=== PATIENT | male | born 1950 | race Caucasian/White ===

== ENCOUNTER 2020-03-16 15:59 | Emergency (ER) | payer OTHER, MEDICARE, BC ==
[2020-03-16 16:12] VITALS: BP 108/60; PULSE 91
[2020-03-16] MEDS ORDERED: Sodium Chloride 0.9% 10 ML Syringe FLUSH PRN (16:19)
[2020-03-16] MEDS ORDERED: Sodium Chloride 0.9% 1,000 ML IV ONE (16:24)
[2020-03-16] MEDS ORDERED: Iopamidol 612 MG/ML 100 ML Bottle IVPUSH ONE (16:26)
--- NOTE | 2020-03-16 16:35 | EDM.PDOC ---
ED HPI GENERAL MEDICAL PROBLEM - General Chief Complaint: Neurological Problem Stated Complaint: CONFUSION LACK OF MEMORY Time Seen by Provider: 03/16/20 16:15 Source of Information: Reports: Patient, Family History Limitations: Reports: No Limitations - History of Present Illness INITIAL COMMENTS - FREE TEXT/NARRATIVE: Pt. presents to ER from clinic with chief complaint of confusion and poor memory for about 1 week. He was sent to ER from clinic by Dr. Jackson for workup for this. Pt. and family state that pt. has developed a rather acute decline in his cognitive status over the past week or so. Pt. states that the symptoms started around the time that he underwent cataract surgery. He has noticed increased confusion, especially regarding his medications, sleep schedule that is off, and occasional difficulty finding words when speaking. Family is also concerned as his intake of fluids and and food as well. Son states that he is eating about 60% of what he normally does. He has not had any garbled speech. No problems with fever or chills. Denies any headache or head trauma. No numbness/tingling in extremities. No problems with ambulation. No facial droop. Denies any vision loss or change. Pt. denies any recent illness. No nausea, vomiting, or diarrhea. No fever or chills. Pt. does complain of some urinary frequency, but denies dysuria, urgency, or hematuria. Onset Date: 03/10/20 Location: Reports: Generalized Associated Symptoms: Reports: Confusion. Denies: Chest Pain, Cough, cough w sputum, Diaphoresis, Fever/Chills, Headaches, Loss of Appetite, Malaise, Nausea/Vomiting, Rash, Seizure, Shortness of Breath, Weakness - Related Data Allergies Allergy/AdvReac Type Severity Reaction Status Date / Time No Known Drug Allergies Allergy Cannot Verified 03/16/20 16:14 Remember seasonal Allergy Other Uncoded 03/16/20 16:14 Home Meds: Home Meds Aspirin [Low Dose Aspirin EC] 2 tab PO BEDTIME 11/24/13 [History] Calcium Carbonate/Vitamin D3 [Calcium 600 + Vit D Tablet] 0.5 tab PO BID 11/24/13 [History] Loratadine/Pseudoephedrine [Claritin-D 24 Hour Tablet] 1 each PO DAILY PRN 11/24/13 [History] Metoprolol Succinate [Toprol XL] 25 mg PO DAILY 11/24/13 [History] Multivitamin [Multi Vitamin Daily] 1 each PO DAILY 11/24/13 [History] Simvastatin [Zocor] 80 mg PO BEDTIME 11/24/13 [History] glipiZIDE [Glipizide Xl] 5 mg PO DAILY 11/24/13 [History] metFORMIN [Glucophage] 1,000 mg PO BIDM 11/24/13 [History] Ibuprofen [Advil] 200 mg PO Q4HR PRN 12/20/15 [History] Ubidecarenone [Coenzyme Q-10] 30 mg PO DAILY 12/20/15 [History] Docusate Sodium [Colace] 100 mg PO DAILY 12/21/15 [History] Past Medical History HEENT History: Reports: Cataract Cardiovascular History: Reports: CAD, High Cholesterol, Stents Respiratory History: Reports: Other (See Below) Other Respiratory History: lung nodule Gastrointestinal History: Reports: Other (See Below) Other Gastrointestinal History: heme pos. stool Genitourinary History: Reports: Other (See Below) Musculoskeletal History: Reports: Other (See Below) Other Musculoskeletal History: fatigue, foot pain Neurological History: Reports: Migraines Psychiatric History: Reports: None Endocrine/Metabolic History: Reports: Diabetes, Type II Other Hematologic History: vitamin d def Immunologic History: Reports: None Oncologic (Cancer) History: Reports: Prostate Dermatologic History: Reports: None - Past Surgical History Head Surgeries/Procedures: Reports: None HEENT Surgical History: Reports: Cataract Surgery, Other (See Below) Other HEENT Surgeries/Procedures: roof of mouth surgery. cataract surgery 03/02/20 and 03/10/20 Cardiovascular Surgical History: Reports: AAA Repair, Coronary Artery Bypass GI Surgical History: Reports: Colonoscopy Male Surgical History: Reports: Prostatectomy Endocrine Surgical History: Reports: None Musculoskeletal Surgical History: Reports: None Social & Family History - Tobacco Use Tobacco Use Status *Q: Unknown Ever Used Tobacco ED ROS GENERAL - Review of Systems Review Of Systems: See Below Constitutional: Reports: No Symptoms, Decreased Appetite. Denies: Fever, Chills, Malaise, Weakness, Fatigue, Night Sweats, Diaphoresis HEENT: Reports: Glasses. Denies: Ear Discharge, Ear Pain, Eye Pain Respiratory: Reports: No Symptoms Cardiovascular: Reports: No Symptoms Endocrine: Reports: No Symptoms GI/Abdominal: Reports: No Symptoms : Reports: No Symptoms Musculoskeletal: Reports: No Symptoms Skin: Reports: No Symptoms Neurological: Reports: Confusion. Denies: Dizziness, Headache, Numbness, Paresthesia, Pre-Existing Deficit, Seizure, Syncope, Tingling, Tremors, Trouble Speaking, Difficulty Walking, Weakness, Change in Speech, Gait Disturbance Psychiatric: Reports: No Symptoms Hematologic/Lymphatic: Reports: No Symptoms Immunologic: Reports: No Symptoms ED EXAM, GENERAL - Physical Exam Exam: See Below Exam Limited By: No Limitations General Appearance: Alert, WD/WN, No Apparent Distress Eye Exam: Bilateral Eye: EOMI, PERRL Nose: Normal Inspection, Normal Mucosa, No Blood Throat/Mouth: Normal Inspection, Normal Lips, Normal Teeth, Normal Gums, Normal Oropharynx, Normal Voice, No Airway Compromise Head: Atraumatic, Normocephalic Neck: Normal Inspection, Supple, Non-Tender, Full Range of Motion Respiratory/Chest: No Respiratory Distress, Lungs Clear, Normal Breath Sounds, No Accessory Muscle Use Cardiovascular: Normal Peripheral Pulses, Regular Rate, Rhythm, No Edema, No JVD Peripheral Pulses: 4+: Radial (L) GI/Abdominal: Soft, Non-Tender, No Distention, No Mass (Male) Exam: Deferred Rectal (Males) Exam: Deferred Back Exam: Normal Inspection, Full Range of Motion Extremities: Normal Inspection, Normal Range of Motion, Non-Tender, No Pedal Edema, Normal Capillary Refill Neurological: Alert, Oriented, CN II-XII Intact, Normal Cognition, Normal Gait, Normal Reflexes, No Motor/Sensory Deficits Psychiatric: Normal Affect, Normal Mood Skin Exam: Warm, Dry, Intact, Normal Color, No Rash Lymphatic: No Adenopathy Course - Vital Signs Last Recorded V/S: Last Vital Signs Temp 36.3 C 03/16/20 16:05 Pulse 91 03/16/20 16:05 Resp 16 03/16/20 16:05 BP 108/60 03/16/20 16:05 Pulse Ox 94 L 03/16/20 16:05 - Orders/Labs/Meds Labs: Laboratory Tests 03/16/20 03/16/20 03/16/20 Range/Units 16:27 16:27 16:27 WBC 9.2 (4.0-10.0) x10^3/uL RBC 4.16 L (4.5-6.0) x10^6/uL Hgb 11.9 L (14.0-18.0) g/dL Hct 34.5 L (40.0-52.0) % MCV 82.9 D (78.0-93.0) fL MCH 28.6 (26.0-32.0) pg MCHC 34.5 (32.0-36.0) g/dL RDW Coeff of Maria A 11.7 (10.0-15.0) % Plt Count 209 (130-400) x10^3/uL Neut % (Auto) 81.2 H (50.0-80.0) % Lymph % (Auto) 7.5 L (25.0-50.0) % Bledso[place] % (Auto) 9.3 (2.0-11.0) % Eos % (Auto) 1.2 (0.0-4.0) % Baso % (Auto) 0.8 (0.2-1.2) % PT 11.2 (9.5-12.3) SEC INR 1.0 L (2.0-3.5) Sodium 131 L (136-145) mmol/L Potassium 4.2 (3.5-5.1) mmol/L Chloride 96 L (98-107) mmol/L Carbon Dioxide 23 (21-32) mmol/L Anion Gap 16.2 (10-20) mmol/L BUN 31 H (7-18) mg/dL Creatinine 1.2 (0.70-1.30) mg/dL Est Cr Clr Drug Dosing TNP Estimated GFR (MDRD) 60 Glucose 240 H (74-106) mg/dL Calcium 8.9 (8.5-10.1) mg/dL Corrected Calcium 10.26 H (8.5-10.1) mg/dL Magnesium 1.9 (1.8-2.4) mg/dL Total Bilirubin 0.9 (0.2-1.0) mg/dL AST 38 H (15-37) U/L ALT 36 (16-63) U/L Alkaline Phosphatase 97 (46-116) U/L Troponin I < 0.017 (<=0.056) ng/mL Total Protein 7.0 (6.4-8.2) g/dL Albumin 2.3 L (3.4-5.0) g/dL Globulin 4.7 Albumin/Globulin Ratio 0.49 TSH, Ultra Sensitive 0.728 (0.358-3.74) uIU/mL Urine Color (YELLOW) Urine Appearance (CLEAR) Urine pH (5.0-8.0) Ur Specific [place] Urine Protein (NEGATIVE) mg/dL Urine Glucose (UA) (NEGATIVE) mg/dL Urine Ketones (NEGATIVE) mg/dL Urine Occult Blood (NEGATIVE) Urine Nitrite (NEGATIVE) Urine Bilirubin (NEGATIVE) Urine Urobilinogen (0.2) EU/dL Ur Leukocyte Esterase (NEGATIVE) Urine RBC (NOT SEEN) /HPF Urine WBC (NOT SEEN) /HPF Ur Squamous Epith Cells (NEGATIVE) /HPF Amorphous Sediment Urine Bacteria (NEGATIVE) /HPF Urine Mucus (NEGATIVE) /LPF Urine Opiates Screen (NEGATIVE) Ur Buprenorphine Scrn (NEGATIVE) Ur Oxycodone Screen (NEGATIVE) Ur EDDP (Meth Metab) (NEGATIVE) Urine Methadone Screen (NEGATIVE) Ur Barbituates Screen (NEGATIVE) Ur Tricyclics Screen (NEGATIVE) Ur Phencyclidine Scrn (NEGATIVE) Ur Amphetamines Screen (NEGATIVE) U Methamphetamines Scrn (NEGATIVE) Urine MDMA Screen (NEGATIVE) U Benzodiazepines Scrn (NEGATIVE) Urine Cocaine Screen (NEGATIVE) U Marijuana (THC) Screen (NEGATIVE) Ethyl Alcohol < 3 (0-3) mg/dL SARS CoV-2 RNA Rapid SHEYLA (NEGATIVE) 03/16/20 03/16/20 03/16/20 Range/Units 17:12 17:12 18:45 WBC (4.0-10.0) x10^3/uL RBC (4.5-6.0) x10^6/uL Hgb (14.0-18.0) g/dL Hct (40.0-52.0) % MCV (78.0-93.0) fL MCH (26.0-32.0) pg MCHC (32.0-36.0) g/dL RDW Coeff of Maria A (10.0-15.0) % Plt Count (130-400) x10^3/uL Neut % (Auto) (50.0-80.0) % Lymph % (Auto) (25.0-50.0) % [place] % (Auto) (2.0-11.0) % Eos % (Auto) (0.0-4.0) % Baso % (Auto) (0.2-1.2) % PT (9.5-12.3) SEC INR (2.0-3.5) Sodium (136-145) mmol/L Potassium (3.5-5.1) mmol/L Chloride (98-107) mmol/L Carbon Dioxide (21-32) mmol/L Anion Gap (10-20) mmol/L BUN (7-18) mg/dL Creatinine (0.70-1.30) mg/dL Est Cr Clr Drug Dosing Estimated GFR (MDRD) Glucose (74-106) mg/dL Calcium (8.5-10.1) mg/dL Corrected Calcium (8.5-10.1) mg/dL Magnesium (1.8-2.4) mg/dL Total Bilirubin (0.2-1.0) mg/dL AST (15-37) U/L ALT (16-63) U/L Alkaline Phosphatase (46-116) U/L Troponin I (<=0.056) ng/mL Total Protein (6.4-8.2) g/dL Albumin (3.4-5.0) g/dL Globulin Albumin/Globulin Ratio TSH, Ultra Sensitive (0.358-3.74) uIU/mL Urine Color Dark yellow H (YELLOW) Urine Appearance Slightly cloudy H (CLEAR) Urine pH 5.5 (5.0-8.0) Ur Specific [place] 1.025 Urine Protein 100 H (NEGATIVE) mg/dL Urine Glucose (UA) 500 H (NEGATIVE) mg/dL Urine Ketones Negative (NEGATIVE) mg/dL Urine Occult Blood Negative (NEGATIVE) Urine Nitrite Negative (NEGATIVE) Urine Bilirubin Small H (NEGATIVE) Urine Urobilinogen 1.0 (0.2) EU/dL Ur Leukocyte Esterase Negative (NEGATIVE) Urine RBC 0-5 (NOT SEEN) /HPF Urine WBC 0-5 (NOT SEEN) /HPF Ur Squamous Epith Cells Not seen (NEGATIVE) /HPF Amorphous Sediment Few Urine Bacteria Rare (NEGATIVE) /HPF Urine Mucus Few H (NEGATIVE) /LPF Urine Opiates Screen Negative (NEGATIVE) Ur Buprenorphine Scrn Negative (NEGATIVE) Ur Oxycodone Screen Negative (NEGATIVE) Ur EDDP (Meth Metab) Negative (NEGATIVE) Urine Methadone Screen Negative (NEGATIVE) Ur Barbituates Screen Negative (NEGATIVE) Ur Tricyclics Screen Negative (NEGATIVE) Ur Phencyclidine Scrn Negative (NEGATIVE) Ur Amphetamines Screen Negative (NEGATIVE) U Methamphetamines Scrn Negative (NEGATIVE) Urine MDMA Screen Negative (NEGATIVE) U Benzodiazepines Scrn Negative (NEGATIVE) Urine Cocaine Screen Negative (NEGATIVE) U Marijuana (THC) Screen Negative (NEGATIVE) Ethyl Alcohol (0-3) mg/dL SARS CoV-2 RNA Rapid SHEYLA Positive H (NEGATIVE) Meds: Medications Discontinued Medications Generic Name Dose Route Start Last Admin Trade Name Freq PRN Reason Stop Dose Admin Sodium Chloride 1,000 mls @ 1,000 mls/hr 03/16/20 16:24 03/16/20 16:40 Normal Saline IV 03/16/20 17:23 1,000 mls/hr .BOLUS ONE Administration Iopamidol 100 ml 03/16/20 16:26 03/16/20 17:39 Isovue-300 (61%) IVPUSH 03/16/20 16:27 100 ml ONETIME ONE Administration Sodium Chloride 10 ml 03/16/20 16:19 Saline Flush FLUSH ASDIRECTED PRN Keep Vein Open - Radiology Interpretation Free Text/Narrative:: CTA head and neck obtained. Diffuse ground glasss opacities and area of septal thickening. Findings consistent with covid 19. Plaque within both carotid arteries without significant stenosis or other de finite acute findings. Departure - Departure Time of Disposition: 18:30 Disposition: Home, Self-Care 01 Clinical Impression: COVID-19 - Discharge Information Instructions: COVID-19 Frequently Asked Questions, COVID-19 Referrals: Debbie Jackson MD [Primary Care Provider] - Forms: ED Department Discharge Additional Instructions: You tested positive for covid 19 which could be causing your symptoms. You and any close contacts will have to quarantine as directed by the Health Dept. There is no outpatient medication for this. Drink plenty of fluids. Eat at least 3 meals a day. Tylenol as needed for fever. Return to ER if you have respiratory distress or trouble breathing. Sepsis Event Note (ED) - Evaluation Sepsis Screening Result: No Definite Risk
[2020-03-16 17:05] LABS: CHLORIDE,CL 96 mmol/L (98-107); SODIUM,NA 131 mmol/L (136-145)
[2020-03-16 17:12] LABS: ANION GAP 16.2 mmol/L (10-20)
[2020-03-16 17:17] LABS: BUPRENORPHINE,URINE NEGATIVE (NEGATIVE); MARIJUANA,URINE NEGATIVE (NEGATIVE); METHYLENEDIOXYMETHAMP,UR NEGATIVE (NEGATIVE); PHENCYCLIDINE,URINE NEGATIVE (NEGATIVE)
--- NOTE | 2020-03-16 18:29 | CT ---
[id number] CT/CTA Head Neck EXAM: CT angiogram head and neck, head CT without contrast INDICATION: CONFUSION X 1 WEEK. COMPARISON: None. DISCUSSION: Aortic arch: Scattered plaque within the arch without dissection, stenosis or other acute abnormality identified. Right carotid artery: There is plaque at the carotid bifurcation and extending into the cervical segment of the internal carotid artery. Hard plaque within the cavernous segment of the internal carotid artery. No significant stenosis, dissection or other acute abnormality. Left carotid artery: There is plaque at the bifurcation of the left carotid artery with possible areas of plaque ulceration and small webs which somewhat narrow the lumen, but less than 50%. There is also hard plaque in the cavernous segment of the internal carotid artery without definite associated stenosis. Right vertebral artery: Right vertebral artery is relatively small and ends in a PICA. Left vertebral artery: Plaque at the origin. No significant stenosis, vessel cut off or other abnormality is identified. Basilar artery: Normal in caliber. No significant stenosis or other abnormality. [place] of Singh: Evaluation mildly limited by motion. Conventional morphology. No vessel cut off, significant stenosis, aneurysm or vascular malformation is identified. Dural sinuses, jugular veins and cerebral veins: Limited evaluation of the cerebral veins, dural sinuses and jugular veins is unremarkable. Brain parenchyma: Mild to moderate generalized atrophy. Minor chronic small vessel ischemic changes. No acute hemorrhage, mass effect, midline shift or hydrocephalus. thickening in the imaged lung apices that are likely infectious. Differential considerations include Covid 19. Prior sternotomy. The neck soft tissues: Unremarkable. Osseous structures: Moderate disc degeneration C4-C5 and C5-C6 with milder changes at the remaining disc levels. IMPRESSION: 1. Diffuse groundglass opacities and areas of septal thickening in the imaged lung apices. These findings are likely infectious and differential considerations include Covid 19. 2. Plaque within both carotid arteries without significant stenosis or other definite acute findings. Meir Del Toro MD 03/16/20 [id number] Thank you for allowing us to participate in the care of your patient.
== END 2020-03-16 19:20 | disposition home or self-care (01) ==
LOC: VM.ED 15:59
DX: U07.1 COVID-19 (principal); I25.10 Atherosclerotic heart disease of native coronary artery without angina pectoris; E78.00 Pure hypercholesterolemia, unspecified; E11.9 Type 2 diabetes mellitus without complications; Z79.82 Long term (current) use of aspirin; Z79.84 Long term (current) use of oral hypoglycemic drugs; Z79.899 Other long term (current) drug therapy; Z95.5 Presence of coronary angioplasty implant and graft
CPT/HCPCS: 70496; 70498; 80053; 80305; 80307; 81001; 83735; 84443; 84484; 85025; 85610; 87635; 93005; 99285; J7030; Q9967; 99284; U0002

== ENCOUNTER 2021-02-03 08:00 | Day surgery (SDC) | payer MEDICARE, BC ==
[2021-02-03] MEDS: Lactated Ringers 1,000 ML IV SCH (08:44)
[2021-02-03] MEDS ORDERED: Propofol 200 MG/20 ML SDV ONE (09:36)
[2021-02-03] MEDS ORDERED: fentaNYL 100 MCG/2 ML SDV ONE (09:36)
[2021-02-03 11:53] VITALS: BP 136/51; PULSE 54
--- NOTE | 2021-02-03 14:51 | OR ---
PREOPERATIVE DIAGNOSIS: History of colon polyps. Last colonoscopy in 11/2015 revealed 2 adenomas and 1 sessile serrated polyp. There is also positive family history of colon cancer in sister. POSTOPERATIVE DIAGNOSES: 1. 2 mm polyp x2 at 15 cm. Both these were removed using cold forceps. 2. Redundant colon. 3. Minimal diverticulosis, mainly left sided. PROCEDURE: Colonoscopy with polypectomy x2 using cold forceps. SURGEON: Charles Ambrosio M.D. ANESTHESIA: Monitored anesthesia care. BOWEL PREP: Good. DESCRIPTION OF PROCEDURE: Ilir is a 70-year-old male who was brought to the endoscopy suite after discussing risks and benefits of the procedure. Informed consent was obtained for conscious sedation and colonoscopy with or without biopsy and/or polypectomy. We also discussed possibility of missed lesions. Pre-procedure exam was unremarkable. IV, oxygen, and monitors were placed. The patient was placed in the left lateral decubitus position. Sedation was administered and a digital rectal exam was performed and unremarkable. Prostate was not palpable as he does have previous history of prostate cancer. Colonoscope was passed per rectum and slowly advanced all the way to the cecum. The patient did have rather redundant colon. The cecum was viewed and photographed. The colonoscope was slowly withdrawn and the mucosa was closed observed in a direct circumferential manner. The ascending colon was unremarkable. The transverse colon was unremarkable. The descending and sigmoid colon revealed some minimal scattered diverticulosis. There was also 2 mm polyp x2 at 15 cm, removed using cold forceps. Retroflexion was performed. Rectal mucosa unremarkable. Scope was removed. The patient tolerated the procedure well. The patient was monitored until that baseline status. Discharge instructions were reviewed and the patient was discharged in good condition. COMPLICATIONS: None. TOTAL TIME: 26 minutes. ESTIMATED BLOOD LOSS: Less than 1 mL. RECOMMENDATIONS/FOLLOWUP: We will await results of path report to determine ideal followup interval. We will have the patient hold his aspirin for 2 days to limit any chance of bleeding from the polypectomy sites. I would like to kindly thank Dr. Jackson for this referral. DMB: 02/03/2021 11:22:25 MODL: 02/03/2021 14:17:21 /[id number]
== END 2021-02-03 12:15 | disposition home or self-care (01) ==
LOC: VM.SDS 08:00
PROVIDERS: ATTEND Family Medicine
DX: Z12.11 Encounter for screening for malignant neoplasm of colon (principal); K63.5 Polyp of colon; K57.30 Diverticulosis of large intestine without perforation or abscess without bleeding; E11.9 Type 2 diabetes mellitus without complications; I25.10 Atherosclerotic heart disease of native coronary artery without angina pectoris; E78.5 Hyperlipidemia, unspecified; I65.23 Occlusion and stenosis of bilateral carotid arteries; C61 Malignant neoplasm of prostate; E55.9 Vitamin D deficiency, unspecified; Z79.899 Other long term (current) drug therapy; Z79.84 Long term (current) use of oral hypoglycemic drugs; Z79.82 Long term (current) use of aspirin; Z88.8 Allergy status to other drugs, medicaments and biological substances; Z98.890 Other specified postprocedural states; Z80.0 Family history of malignant neoplasm of digestive organs; Z87.891 Personal history of nicotine dependence
CPT/HCPCS: 00811; 45380; 82947; J2704; J3010; J7120; 88305

== ENCOUNTER 2021-12-05 20:28 | Emergency (ER) | payer MEDICARE, BC ==
[2021-12-05 20:41] VITALS: BP 141/52; PULSE 65
== END 2021-12-05 20:46 | disposition home or self-care (01) ==
LOC: VM.ED 20:28
DX: S01.21XA Laceration without foreign body of nose, initial encounter (principal); I25.10 Atherosclerotic heart disease of native coronary artery without angina pectoris; E11.9 Type 2 diabetes mellitus without complications; Z88.8 Allergy status to other drugs, medicaments and biological substances; Z91.048 Other nonmedicinal substance allergy status; Z79.899 Other long term (current) drug therapy; Z79.82 Long term (current) use of aspirin; Z79.84 Long term (current) use of oral hypoglycemic drugs; Z86.16 Personal history of COVID-19; W22.8XXA Striking against or struck by other objects, initial encounter
CPT/HCPCS: 99282; 99283

== ENCOUNTER 2023-08-16 08:10 | Emergency (ER) | payer MEDICARE, BC ==
[2023-08-16 08:38] LABS: BASOPHILS PERCENT AUTO 0.6 % (0.2-1.2); EOSINOPHILS ABSOLUTE AUTO 0.3 x10^3/uL (0.0-0.5); EOSINOPHILS PERCENT AUTO 4.1 % (0.0-4.0); HEMATOCRIT 38.3 % (40.0-52.0); HEMOGLOBIN 13.2 g/dL (14.0-18.0); IMMATURE GRAN ABSOLUTE AUTO 0.01 x10^3/uL (0.00-0.07); LYMPHOCYTES ABSOLUTE AUTO 1.8 x10^3/uL (1.0-4.8); LYMPHOCYTES PERCENT AUTO 28.7 % (25.0-50.0); MEAN CORPUSCULAR HEMOGLOBIN 28.8 pg (26.0-32.0); MEAN CORPUSCULAR HGB CONC 34.5 g/dL (32.0-36.0); MEAN CORPUSCULAR VOLUME 83.6 fL (78.0-93.0); MONOCYTES ABSOLUTE AUTO 0.5 x10^3/uL (0.0-0.8); MONOCYTES PERCENT AUTO 7.7 % (2.0-11.0); NEUTROPHILS ABSOLUTE AUTO 3.7 x10^3/uL (1.8-7.7); NEUTROPHILS PERCENT AUTO 58.7 % (50.0-80.0); PLATELET COUNT,PLT 140 x10^3/uL (130-400); RED BLOOD CELL COUNT 4.58 x10^6/uL (4.5-6.0); WHITE BLOOD CELL COUNT,WBC 6.4 x10^3/uL (4.0-10.0)
[2023-08-16 08:57] LABS: ALANINE AMINOTRANSFERASE,ALT 22 U/L (16-63); ALBUMIN 3.6 g/dL (3.4-5.0); ALKALINE PHOSPHATASE 86 U/L (46-116); ANION GAP 11.3 mmol/L (5-15); ASPARTATE AMNIOTRANSFERASE,AST 16 U/L (15-37); BILIRUBIN TOTAL 0.5 mg/dL (0.2-1.0); BLOOD UREA NITROGEN,BUN 28 mg/dL (7-18); CALCIUM 9.2 mg/dL (8.5-10.1); CARBON DIOXIDE,CO2 30 mmol/L (21-32); CHLORIDE,CL 106 mmol/L (98-107); ESTIMATED GFR 78 mL/min (>=60); GLUCOSE RANDOM 272 mg/dL (70-99); MAGNESIUM 1.9 mg/dL (1.8-2.4); POTASSIUM,K 4.3 mmol/L (3.5-5.1); PROTEIN TOTAL,TP 6.6 g/dL (6.4-8.2); SODIUM,NA 143 mmol/L (136-145)
[2023-08-16 09:12] VITALS: BP 151/77; PULSE 68
[2023-08-16 09:13] LABS: PROTHROMBIN TIME 9.8 SEC (8.9-11.5)
[2023-08-16 09:29] LABS: PTT,PARTIAL THROMBOPLSTIN TIME 24.3 SEC (21.9-33.8)
== END 2023-08-16 10:12 | disposition home or self-care (01) ==
LOC: VM.ED 08:10
DX: E11.42 Type 2 diabetes mellitus with diabetic polyneuropathy (principal); E78.00 Pure hypercholesterolemia, unspecified; I25.10 Atherosclerotic heart disease of native coronary artery without angina pectoris; E11.9 Type 2 diabetes mellitus without complications; Z86.16 Personal history of COVID-19; Z95.1 Presence of aortocoronary bypass graft; Z79.82 Long term (current) use of aspirin; Z79.899 Other long term (current) drug therapy; Z91.09 Other allergy status, other than to drugs and biological substances; Z88.8 Allergy status to other drugs, medicaments and biological substances; Z79.84 Long term (current) use of oral hypoglycemic drugs
CPT/HCPCS: 36415; 70450; 80053; 83735; 84484; 85025; 85610; 85730; 93005; 93010; 99284